=== PATIENT | male | born 1985 | race Caucasian/White ===

== ENCOUNTER → 2019-04-12 | Outpatient (CLI) | payer BC ==
[~2019-04-12] MED LIST: DOXYCYCLINE 10100 MG PO; PRILOSEC 20MG20 MG PO
== END ==
LOC: COL.RAD 04-11 08:15
DX: R31.29 Other microscopic hematuria (principal)

== ENCOUNTER → 2020-10-16 | Outpatient (CLI) | payer BC | LOC: COL.RAD 12:36 | DX: K44.9 Diaphragmatic hernia without obstruction or gangrene (principal) | CPT/HCPCS: Q9967 ==

== ENCOUNTER 2021-12-19 11:21 | Emergency (ER) | payer BC ==
[~2021-12-19] VITALS: Ht 177.8 cm; Wt 103.2 kg
[2021-12-19 11:35] VITALS: TEMP 98
[2021-12-19 12:41] LABS: BASO % 0.5 % (0.0-2.0); EOS # 0.2 K/mm3 (0.0-0.7); EOS % 2.6 % (0.0-4.0); GRAN # 3.7 K/mm3 (1.4-6.5); GRAN % 63.5 % (42.2-75.2); HEMATOCRIT 41.4 % (42.0-52.0); HEMOGLOBIN 14.3 g/dl (13.5-18.0); LYMPH # 1.6 K/mm3 (1.2-3.4); LYMPH % 26.9 % (20.0-51.0); MEAN CELL VOLUME 94 fl (80.0-100.0); MEAN CORPUSCULAR HEMOGLOBIN 33 pg (27-31); MEAN CORPUSCULAR HGB CONC 35 g/dl (33.0-37.0); MEAN PLATELET VOLUME 11.3 fl (7.4-10.4); MONO # 0.4 K/mm3 (0.1-0.6); MONO % 6.3 % (1.7-9.3); PLATELET COUNT 187 K/mm3 (130-400); REDCELL DISTRIBUTION WIDTH-CV 12.5 % (11.5-14.5)
[2021-12-19 13:01] LABS: ALBUMIN 3.8 gm/dL (3.5-5.0); BILIRUBIN,TOTAL 0.6 mg/dL (0.2-1.2); CALCIUM 9.5 mg/dL (8.4-10.2); CREATININE, serum 0.95 mg/dL (0.72-1.25); POTASSIUM 3.9 mmol/L (3.5-4.5); TOTAL PROTEIN 7.7 gm/dL (6.2-8.1)
[2021-12-19 15:06] VITALS: BP 162/88; PULSE 73
== END 2021-12-19 15:20 | disposition home or self-care (01) ==
LOC: COL.ER 11:21
PROVIDERS: Emergency Medicine
DX: R07.89 Other chest pain (principal); R09.89 Other specified symptoms and signs involving the circulatory and respiratory systems
CPT/HCPCS: J1885

== ENCOUNTER → 2022-01-11 | Outpatient (CLI) | payer BC | LOC: COL.RAD 08:47 | DX: K44.9 Diaphragmatic hernia without obstruction or gangrene (principal); K21.9 Gastro-esophageal reflux disease without esophagitis ==

== ENCOUNTER 2022-02-17 05:47 | Day surgery (SDC) | payer BC ==
[~2022-02-17] VITALS: Ht 177.8 cm; Wt 101.9 kg
[2022-02-17] VITALS (11 sets, daily range): BP systolic 111–1220; BP diastolic 68–78; PULSE 79–94; TEMP 97.7–98.5
[2022-02-17] MEDS ORDERED: PROTONIX 40MG T40 MG PO (06:11)
[2022-02-17] MEDS ORDERED: CIPRO 500MG TA500 MG PO (06:11)
--- NOTE | 2022-02-17 07:10 | NUR ---
The patient was taken back to the operating room via cart at this time. The patient's chart was sent with him to surgery. The patient's belongings were taken over to the recovery room and will be transferred up with the patient to the 3rd floor post operatively.
--- NOTE | 2022-02-17 21:00 | NUR ---
PT RESTING IN BED. A&OX4. PT HAS DEFERRED PAIN TO RT SHOULDER. CONTROLLED AT THIS TIME. VOIDING W/O DIFFICULTY. INDEPENDENT IN ROOM. STEADY GAIT. NO NEEDS AT THIS TIME. CALL LIGHT IN REACH.
[2022-02-18 00:45] VITALS: BP 114/69; PULSE 81; TEMP 97.8
[2022-02-18 04:11] VITALS: BP 113/67; PULSE 75; TEMP 97.9
[2022-02-18 08:14] VITALS: BP 113/74; PULSE 76; TEMP 97.7
--- NOTE | 2022-02-18 08:25 | NUR ---
Pt. sitting up in bed. Pt. is A&OX3, assessment complete. INT to lt. hand patent. Abd. incisions CDI with bandaids. Pt. denies pain or other needs, call light within reach.
--- NOTE | 2022-02-18 10:08 | NUR ---
Initial visit; Patient thanked Furniture Inspector for looking in on him and offering encouragement. Patient doing well and thanked Furniture Inspector for offering God's blessings.
[2022-02-18 12:52] VITALS: BP 120/68; PULSE 70; TEMP 97.6
[2022-02-18 16:01] VITALS: BP 117/74; PULSE 64; TEMP 97.5
[2022-02-18] MEDS ORDERED: NORCO 325 MG-51 TAB PO (16:43)
--- NOTE | 2022-02-18 17:30 | NUR ---
Pt. to discharge. INT discontinued from lt. hand. Reviewed discharge paperwork. Pt. denies questions. Pt. ambulated out.
== END 2022-02-18 17:30 | disposition home or self-care (01) ==
LOC: SDCO 05:47 → SURG 10:00 → SDCO 11:00
DX: K44.9 Diaphragmatic hernia without obstruction or gangrene (principal); K21.9 Gastro-esophageal reflux disease without esophagitis; Z79.899 Other long term (current) drug therapy
CPT/HCPCS: OP; J0690; J1100; J1170; J1885; J2175; J2405; J2704; J3010; J7120

== ENCOUNTER → 2023-08-17 | Outpatient (CLI) | payer OTHER ==
[~2023-08-17] MED LIST changes: +CIPRO 500MG TA500 MG PO; +NORCO 325 MG-51 TAB PO; +PROTONIX 40MG T40 MG PO
== END ==
LOC: COL.RAD 07:12
DX: M47.22 Other spondylosis with radiculopathy, cervical region (principal); M48.02 Spinal stenosis, cervical region